=== PATIENT | male | born 1955 | race Caucasian/White ===

== ENCOUNTER 2019-08-18 19:51 | Inpatient (IN) ==
[2019-08-18 20:23] LABS: Basophils % 0.4 %; Eosinophils # 0.2 K/mcL (0.0-0.6); Eosinophils % 2.2 %; Hematocrit 42.2 % (37.5-50.1); Hemoglobin 14.7 g/dL (12.9-16.9); Immature Granulocytes % 0.3 % (0-4); Immature Platelets 4.4 % (1.1-6.1); Lymphocytes # 2.7 K/mcL (0.6-4.6); Lymphocytes % 29.5 %; Mean Corpuscular HGB Conc 34.8 g/dL (31.6-35.5); Mean Corpuscular Hemoglobin 30.7 pg (28.0-33.3); Mean Corpuscular Volume 88.1 fL (83.0-100.0); Mean Platelet Volume 9.8 fL (9.4-12.4); Monocytes # 0.7 K/mcL (0.0-1.3); Monocytes % 7.9 %; Neutrophils # 5.5 K/mcL (1.6-8.9); Platelet Count 251 K/mcL (140-400); Red Blood Count 4.79 M/mcL (4.19-5.50); Red Cell Distribution Width 12.9 % (11.5-14.5); Segmented Neutrophils % 59.7 %; White Blood Count 9.3 K/mcL (4.3-11.1)
[2019-08-18 20:57] LABS: INR 0.9; Prothrombin Time 10.5 Seconds (9.4-12.1)
[2019-08-18 20:59] LABS: Activated Partial Thrombo Time 30.5 Seconds (26.0-36.0)
[2019-08-18 21:09] LABS: BUN/Creatinine Ratio 20 (6-26); Blood Urea Nitrogen 19 mg/dL (8-23); Calcium 9.5 mg/dL (8.6-10.3); Carbon Dioxide 23 mEq/L (23-29); Chloride 102 mEq/L (98-107); Glucose 139 mg/dL (70-105); Osmolality,Calculated 285 (280-300); Potassium 4.2 mEq/L (3.5-5.1); Sodium 135 mEq/L (136-145); Troponin I < 0.03 ng/mL (< 0.04); eGFR For African Americans > 60 (> 60); eGFR For Non-African Americans > 60 (> 60)
[2019-08-18 21:20] LABS: Thyroid Stimulating Hormone 2.041 mcIU/mL (0.340-5.600)
[2019-08-18] MEDS ORDERED: Naloxone 0.4 MG/ML INJ IVP PRN (21:56)
[2019-08-18] MEDS ORDERED: Morphine Sulfate 2 MG/ML SYRINGE IVP PRN (21:56)
[2019-08-18] MEDS ORDERED: Ondansetron 4 MG/2 ML VIAL IVP PRN (21:56)
[2019-08-18 22:49] LABS: Amphetamine Screen,Urine Negative ng/mL (Cutoff=1000); Barbiturate Screen,Urine Negative ng/mL (Cutoff=200); Benzodiazepines Screen,Urine Negative ng/mL (Cutoff=200); Cannabinoid Screen,Urine Negative ng/mL (Cutoff = 50); Cocaine Screen,Urine Negative ng/mL (Cutoff= 300); Opiate Screen,Urine Negative ng/mL (Cutoff=300); Phencyclidine Screen,Urine Negative ng/mL (Cutoff=25)
[2019-08-19] MEDS: *HR* Heparin 5,000 UNIT/ML VIAL SQ SCH ×2 (00:22→06:07)
[2019-08-19 02:39] LABS: Basophils % 0.3 %; Eosinophils # 0.2 K/mcL (0.0-0.6); Eosinophils % 2.5 %; Hematocrit 42.2 % (37.5-50.1); Hemoglobin 14.2 g/dL (12.9-16.9); Immature Granulocytes % 0.3 % (0-4); Lymphocytes # 2.9 K/mcL (0.6-4.6); Lymphocytes % 32.5 %; Mean Corpuscular HGB Conc 33.6 g/dL (31.6-35.5); Mean Corpuscular Hemoglobin 30.3 pg (28.0-33.3); Mean Corpuscular Volume 90.2 fL (83.0-100.0); Mean Platelet Volume 10.3 fL (9.4-12.4); Monocytes # 0.7 K/mcL (0.0-1.3); Monocytes % 7.4 %; Platelet Count 271 K/mcL (140-400); Red Blood Count 4.68 M/mcL (4.19-5.50); White Blood Count 8.8 K/mcL (4.3-11.1)
[2019-08-19 02:46] LABS: Prothrombin Time 11.2 Seconds (9.4-12.1)
[2019-08-19 03:01] LABS: % Iron Saturation 12 % (20-55); Alanine Aminotransferase 24 Units/L (7-52); Albumin 3.9 g/dL (3.5-5.7); Albumin/Globulin Ratio 1.3 (1.1-2.2); Alkaline Phosphatase 116 Units/L (34-104); Aspartate Amino Transferase 15 Units/L (13-39); BUN/Creatinine Ratio 20 (6-26); Bilirubin,Total 0.3 mg/dL (0.3-1.0); Blood Urea Nitrogen 18 mg/dL (8-23); Calcium 9.4 mg/dL (8.6-10.3); Carbon Dioxide 26 mEq/L (23-29); Chloride 102 mEq/L (98-107); Chol/HDL Ratio 3.9 (0-4.9); Cholesterol 174 mg/dL (< 200); Glucose 135 mg/dL (70-105); HDL Cholesterol 45 mg/dL (40-59); Iron 43 mcg/dL (65-175); LDL Cholesterol,Calculated 99 mg/dL (0-99); Magnesium 1.8 mg/dL (1.6-2.6); Osmolality,Calculated 288 (280-300); Phosphorous 3.5 mg/dL (2.7-4.5); Sodium 137 mEq/L (136-145); Total Protein 6.9 g/dL (6.4-8.9); Transferrin 260 mg/dL (203-362); Triglycerides 149 mg/dL (< 150); Troponin I < 0.03 ng/mL (< 0.04); eGFR For African Americans > 60 (> 60); eGFR For Non-African Americans > 60 (> 60)
[2019-08-19 03:15] LABS: Ferritin 249 ng/mL (20-250)
[2019-08-19] MEDS: amLODIPine 5 MG TABLET PO SCH (08:10)
[2019-08-19] MEDS: Aspirin Enteric Coated 81 MG Tablet PO SCH (08:10)
[2019-08-19] MEDS: Lisinopril 20 MG TABLET PO SCH (08:10)
[2019-08-19] MEDS: *HR* Enoxaparin 120 MG/0.8 ML SYRINGE SQ SCH ×2 (11:18→22:45)
[2019-08-19] MEDS ORDERED: Acetaminophen 325 MG TABLET PO PRN (11:24)
[2019-08-19 13:13] LABS: Estimated Average Glucose 154 mg/dl
[2019-08-19] MEDS ORDERED: Melatonin 3 MG TABLET PO ONE (20:55)
[2019-08-20 02:11] LABS: Basophils % 0.4 %; Eosinophils # 0.3 K/mcL (0.0-0.6); Eosinophils % 3.6 %; Hematocrit 43.3 % (37.5-50.1); Hemoglobin 14.5 g/dL (12.9-16.9); Immature Granulocytes % 0.1 % (0-4); Lymphocytes # 2.9 K/mcL (0.6-4.6); Lymphocytes % 37.5 %; Mean Corpuscular HGB Conc 33.5 g/dL (31.6-35.5); Mean Corpuscular Hemoglobin 30.4 pg (28.0-33.3); Mean Corpuscular Volume 90.8 fL (83.0-100.0); Mean Platelet Volume 9.8 fL (9.4-12.4); Monocytes # 0.7 K/mcL (0.0-1.3); Neutrophils # 3.9 K/mcL (1.6-8.9); Platelet Count 266 K/mcL (140-400); Red Blood Count 4.77 M/mcL (4.19-5.50); Segmented Neutrophils % 49.4 %; White Blood Count 7.8 K/mcL (4.3-11.1)
[2019-08-20 02:27] LABS: BUN/Creatinine Ratio 15 (6-26); Blood Urea Nitrogen 15 mg/dL (8-23); Calcium 9.6 mg/dL (8.6-10.3); Carbon Dioxide 27 mEq/L (23-29); Chloride 102 mEq/L (98-107); Glucose 128 mg/dL (70-105); Magnesium 1.9 mg/dL (1.6-2.6); Osmolality,Calculated 284 (280-300); Phosphorous 4.5 mg/dL (2.7-4.5); Potassium 4.3 mEq/L (3.5-5.1); Sodium 136 mEq/L (136-145); eGFR For African Americans > 60 (> 60); eGFR For Non-African Americans > 60 (> 60)
[2019-08-20] MEDS: *HR* HYDROcodone/Acet 5/325 mg TABLET PO PRN ×2 (02:43→16:08)
[2019-08-20] MEDS: amLODIPine 5 MG TABLET PO SCH (09:21)
[2019-08-20] MEDS: Lisinopril 20 MG TABLET PO SCH (09:21)
[2019-08-20] MEDS: *HR* Enoxaparin 120 MG/0.8 ML SYRINGE SQ SCH (09:22)
[2019-08-20] MEDS: Aspirin Enteric Coated 81 MG Tablet PO SCH (09:22)
[2019-08-20] MEDS ORDERED: Dextrose Gel 15 GM/37.5 ML TUBE PO PRN ×2 (12:12)
[2019-08-20] MEDS ORDERED: *HR* Dextrose 50 % in Water (Syg) 50 ML SYRINGE IVP PRN (12:12)
[2019-08-20] MEDS ORDERED: D5% in Water 1,000 ML IVC PRN (12:12)
[2019-08-20] MEDS: Insulin LISPRO 300 UNITS/3 ML VIAL SQ SCH (16:30)
[2019-08-20] MEDS ORDERED: SUMAtriptan succinate 25 MG TABLET PO ONE (20:30)
[2019-08-20] MEDS ORDERED: Acetaminophen 325 MG TABLET PO ONE (20:31)
[2019-08-20] MEDS: Apixaban 5 MG TABLET PO SCH (21:01)
[2019-08-20] MEDS: Insulin DETEMIR 100 UNIT/ML X5UNITS SQ SCH (21:03)
[2019-08-21] MEDS: Insulin LISPRO 300 UNITS/3 ML VIAL SQ SCH ×3 (07:42→16:17)
[2019-08-21] MEDS: Apixaban 5 MG TABLET PO SCH ×2 (07:51→21:07)
[2019-08-21] MEDS: Lisinopril 20 MG TABLET PO SCH (07:51)
[2019-08-21] MEDS: amLODIPine 5 MG TABLET PO SCH (07:51)
[2019-08-21] MEDS ORDERED: NON-FORMULARY MEDICATION 1 EACH EACH (Omega-3/Dha/Epa/Fish Oil [Fish Oil 1,000 Mg Softgel] PO SCH (09:00)
[2019-08-21] MEDS ORDERED: *HR* FentaNYL (PF) 100 MCG/2 ML VIAL IVP PRN (13:24)
[2019-08-21] MEDS ORDERED: Lidocaine Viscous Oral Soln 15 ML SOLUTION MM PRN (13:24)
[2019-08-21] MEDS ORDERED: 0.9 % Sodium Chloride 500 ML IVC ONE (13:26)
[2019-08-21] MEDS ORDERED: *HR* Midazolam HCl 5 MG/5 ML VIAL IVP PRN (13:26)
[2019-08-21] MEDS: *HR* HYDROcodone/Acet 5/325 mg TABLET PO PRN (15:32)
[2019-08-21] MEDS: Insulin DETEMIR 100 UNIT/ML X5UNITS SQ SCH (21:08)
[2019-08-21] MEDS ORDERED: Acetaminophen 325 MG TABLET PO ONE (23:56)
[2019-08-22] MEDS: *HR* HYDROcodone/Acet 5/325 mg TABLET PO PRN (02:23)
[2019-08-22 03:00] LABS: Basophils % 0.4 %; Eosinophils # 0.2 K/mcL (0.0-0.6); Eosinophils % 2.6 %; Hematocrit 44.9 % (37.5-50.1); Hemoglobin 15.4 g/dL (12.9-16.9); Immature Granulocytes % 0.2 % (0-4); Lymphocytes # 2.7 K/mcL (0.6-4.6); Mean Corpuscular HGB Conc 34.3 g/dL (31.6-35.5); Mean Corpuscular Hemoglobin 30.7 pg (28.0-33.3); Mean Corpuscular Volume 89.6 fL (83.0-100.0); Mean Platelet Volume 9.6 fL (9.4-12.4); Monocytes # 0.7 K/mcL (0.0-1.3); Monocytes % 8.7 %; Neutrophils # 4.8 K/mcL (1.6-8.9); Platelet Count 282 K/mcL (140-400); Red Blood Count 5.01 M/mcL (4.19-5.50); Segmented Neutrophils % 56.1 %; White Blood Count 8.6 K/mcL (4.3-11.1)
[2019-08-22 03:19] LABS: BUN/Creatinine Ratio 20 (6-26); Blood Urea Nitrogen 25 mg/dL (8-23); Calcium 9.8 mg/dL (8.6-10.3); Carbon Dioxide 25 mEq/L (23-29); Chloride 100 mEq/L (98-107); Glucose 90 mg/dL (70-105); Magnesium 1.7 mg/dL (1.6-2.6); Osmolality,Calculated 284 (280-300); Phosphorous 4.6 mg/dL (2.7-4.5); Potassium 4.2 mEq/L (3.5-5.1); Sodium 135 mEq/L (136-145); eGFR For African Americans > 60 (> 60); eGFR For Non-African Americans 59 (> 60)
[2019-08-22] MEDS: Insulin LISPRO 300 UNITS/3 ML VIAL SQ SCH ×2 (08:59→12:12)
[2019-08-22] MEDS: amLODIPine 5 MG TABLET PO SCH (09:02)
[2019-08-22] MEDS: Apixaban 5 MG TABLET PO SCH (09:02)
[2019-08-22] MEDS: Lisinopril 20 MG TABLET PO SCH (09:02)
[2019-08-22] MEDS ORDERED: Lidocaine Viscous Oral Soln 15 ML SOLUTION MM PRN (09:29)
[2019-08-22] MEDS ORDERED: 0.9 % Sodium Chloride 500 ML IVC ONE (09:30)
[2019-08-22 10:05] VITALS: BP 111/81
[2019-08-22] MEDS: *HR* Midazolam HCl 5 MG/5 ML VIAL IVP PRN ×4 (10:30→10:50)
[2019-08-22] MEDS: *HR* FentaNYL (PF) 100 MCG/2 ML VIAL IVP PRN ×3 (10:30→10:45)
== END 2019-08-22 13:28 | disposition home or self-care (01) | DRG 309 ==
LOC: 2NENU 19:51 → EMEROOARM 19:51 → SUATTDRO 21:29 → 2NENU 23:00 → SUATTDRO 08-21 17:47
PROVIDERS: ADMIT Internal Medicine; ATTEND Family Medicine

== ENCOUNTER 2020-09-12 15:31 | Observation (INO) ==
[2020-09-12 15:55] LABS: Basophils % 0.2 %; Eosinophils # 0.1 K/mcL (0.0-0.6); Eosinophils % 0.3 %; Hematocrit 48.9 % (37.5-50.1); Hemoglobin 15.8 g/dL (12.9-16.9); Immature Granulocytes % 0.2 % (0-4); Lymphocytes # 3.3 K/mcL (0.6-4.6); Lymphocytes % 21.6 %; Mean Corpuscular HGB Conc 32.3 g/dL (31.6-35.5); Mean Corpuscular Hemoglobin 29.1 pg (28.0-33.3); Mean Corpuscular Volume 90.1 fL (83.0-100.0); Mean Platelet Volume 9.5 fL (9.4-12.4); Monocytes # 1.1 K/mcL (0.0-1.3); Monocytes % 7.5 %; Neutrophils # 10.6 K/mcL (1.6-8.9); Platelet Count 357 K/mcL (140-400); Red Blood Count 5.43 M/mcL (4.19-5.50); Red Cell Distribution Width 12.8 % (11.5-14.5); Segmented Neutrophils % 70.2 %; White Blood Count 15.1 K/mcL (4.3-11.1)
[2020-09-12 16:00] LABS: INR 1.2; Prothrombin Time 14.3 Seconds (9.4-12.1)
[2020-09-12 16:03] LABS: Activated Partial Thrombo Time 31.5 Seconds (26.0-36.0)
[2020-09-12 16:16] LABS: BUN/Creatinine Ratio 25 (6-26); Blood Urea Nitrogen 25 mg/dL (8-23); Calcium 10.2 mg/dL (8.6-10.3); Carbon Dioxide 24 mEq/L (23-29); Chloride 99 mEq/L (98-107); Glucose 158 mg/dL (70-105); Osmolality,Calculated 284 (280-300); Potassium 4.5 mEq/L (3.5-5.1); Sodium 133 mEq/L (136-145); eGFR For African Americans > 60 (> 60); eGFR For Non-African Americans > 60 (> 60)
[2020-09-12 16:17] LABS: Troponin I < 0.03 ng/mL (< 0.04)
[2020-09-12] MEDS: DilTIAZem 50 MG/50 ML IV.SOLN IVC SCH (16:24)
[2020-09-12] MEDS ORDERED: DilTIAZem 50 MG/50 ML IV.SOLN IVC SCH (16:28)
[2020-09-12] MEDS ORDERED: *HR* HYDROcodone/Acet 5/325 mg TABLET PO PRN (17:52)
[2020-09-12] MEDS ORDERED: Naloxone 0.4 MG/ML INJ IVP PRN (17:52)
[2020-09-12] MEDS ORDERED: MOM Conc 10 ML UD.LIQ PO PRN (17:52)
[2020-09-12] MEDS ORDERED: Acetaminophen 325 MG TABLET PO PRN (17:52)
[2020-09-12] MEDS ORDERED: Ondansetron 4 MG/2 ML VIAL IVP PRN (17:52)
[2020-09-12] MEDS ORDERED: Mag Hydrox/Al Hydrox/Simeth 30 ML UDC PO PRN (17:52)
[2020-09-12] MEDS ORDERED: D5% in Water 1,000 ML IVC PRN (17:54)
[2020-09-12] MEDS ORDERED: *HR* Dextrose 50 % in Water (Vial) 50 ML VIAL IVP PRN (17:54)
[2020-09-12] MEDS ORDERED: Dextrose Gel 15 GM/37.5 ML TUBE PO PRN ×2 (17:54)
[2020-09-12] MEDS: Magnesium Oxide 400 MG TABLET PO SCH (18:51)
[2020-09-12] MEDS: Insulin LISPRO 300 UNITS/3 ML VIAL SUBQ SCH (21:00)
[2020-09-12] MEDS: Apixaban 5 MG TABLET PO SCH (21:18)
[2020-09-12] MEDS: Melatonin 3 MG TABLET PO PRN (21:18)
[2020-09-12] MEDS: Sennosides/Docusate Sodium TABLET PO SCH (21:18)
[2020-09-13] MEDS: DilTIAZem 50 MG/50 ML IV.SOLN IVC SCH ×2 (01:23→19:52)
[2020-09-13 06:45] LABS: Basophils % 0.3 %; Eosinophils # 0.1 K/mcL (0.0-0.6); Eosinophils % 1.1 %; Hematocrit 46.9 % (37.5-50.1); Hemoglobin 15.2 g/dL (12.9-16.9); Immature Granulocytes % 0.3 % (0-4); Lymphocytes # 3.5 K/mcL (0.6-4.6); Lymphocytes % 29.6 %; Mean Corpuscular HGB Conc 32.4 g/dL (31.6-35.5); Mean Corpuscular Hemoglobin 29.5 pg (28.0-33.3); Mean Corpuscular Volume 90.9 fL (83.0-100.0); Mean Platelet Volume 9.5 fL (9.4-12.4); Monocytes % 8.6 %; Neutrophils # 7.1 K/mcL (1.6-8.9); Platelet Count 281 K/mcL (140-400); Red Blood Count 5.16 M/mcL (4.19-5.50); Red Cell Distribution Width 12.9 % (11.5-14.5); Segmented Neutrophils % 60.1 %; White Blood Count 11.8 K/mcL (4.3-11.1)
[2020-09-13 07:09] LABS: Alanine Aminotransferase 18 Units/L (7-52); Albumin 3.8 g/dL (3.5-5.7); Albumin/Globulin Ratio 1.3 (1.1-2.2); Alkaline Phosphatase 88 Units/L (34-104); Aspartate Amino Transferase 12 Units/L (13-39); BUN/Creatinine Ratio 26 (6-26); Bilirubin,Total 0.5 mg/dL (0.3-1.0); Blood Urea Nitrogen 22 mg/dL (8-23); Calcium 9.8 mg/dL (8.6-10.3); Carbon Dioxide 24 mEq/L (23-29); Chloride 100 mEq/L (98-107); Glucose 129 mg/dL (70-105); Osmolality,Calculated 281 (280-300); Phosphorous 4.1 mg/dL (2.7-4.5); Potassium 4.2 mEq/L (3.5-5.1); Sodium 133 mEq/L (136-145); Total Protein 6.8 g/dL (6.4-8.9); eGFR For African Americans > 60 (> 60); eGFR For Non-African Americans > 60 (> 60)
[2020-09-13 07:19] LABS: Thyroid Stimulating Hormone 2.206 mcIU/mL (0.340-5.600)
[2020-09-13] MEDS: Insulin LISPRO 300 UNITS/3 ML VIAL SUBQ SCH ×4 (08:06→20:49)
[2020-09-13] MEDS: Apixaban 5 MG TABLET PO SCH ×2 (09:03→19:51)
[2020-09-13] MEDS: lisinopriL 20 MG TABLET PO SCH (09:03)
[2020-09-13] MEDS: Sennosides/Docusate Sodium TABLET PO SCH ×2 (09:03→19:52)
[2020-09-13] MEDS ORDERED: Perflutren Lipid Microsphere 1.3 ML in 0.9 % Sodium Chloride 8.7 ML IVP PRN (11:38)
[2020-09-13] MEDS: Insulin DETEMIR 100 UNIT/ML X5UNITS SUBQ SCH (21:33)
[2020-09-14] MEDS: Insulin LISPRO 300 UNITS/3 ML VIAL SUBQ SCH ×4 (07:29→20:25)
[2020-09-14] MEDS: Apixaban 5 MG TABLET PO SCH ×2 (07:43→20:27)
[2020-09-14] MEDS: lisinopriL 20 MG TABLET PO SCH (07:43)
[2020-09-14] MEDS: Finasteride 5 MG TABLET PO SCH (07:43)
[2020-09-14] MEDS: Sennosides/Docusate Sodium TABLET PO SCH ×2 (07:43→20:27)
[2020-09-14 08:06] LABS: BUN/Creatinine Ratio 25 (6-26); Blood Urea Nitrogen 28 mg/dL (8-23); Calcium 9.7 mg/dL (8.6-10.3); Carbon Dioxide 24 mEq/L (23-29); Chloride 100 mEq/L (98-107); Glucose 118 mg/dL (70-105); Osmolality,Calculated 283 (280-300); Phosphorous 3.9 mg/dL (2.7-4.5); Potassium 4.6 mEq/L (3.5-5.1); Sodium 133 mEq/L (136-145); eGFR For African Americans > 60 (> 60); eGFR For Non-African Americans > 60 (> 60)
[2020-09-14] MEDS: Cholecalciferol (D-3) 1,000 UNIT (25MCG) TABLET PO SCH (11:07)
[2020-09-14] MEDS ORDERED: *HR* LORazepam 2 MG/ML VIAL IVP PRN (13:39)
[2020-09-14] MEDS: Magnesium Oxide 400 MG TABLET PO SCH (17:02)
[2020-09-14] MEDS: Insulin DETEMIR 100 UNIT/ML X5UNITS SUBQ SCH (20:25)
[2020-09-14] MEDS: Melatonin 3 MG TABLET PO PRN (22:31)
[2020-09-15 05:44] LABS: Basophils % 0.4 %; Eosinophils # 0.2 K/mcL (0.0-0.6); Eosinophils % 2.1 %; Hematocrit 50.4 % (37.5-50.1); Hemoglobin 16.4 g/dL (12.9-16.9); Immature Granulocytes % 0.4 % (0-4); Lymphocytes # 3.5 K/mcL (0.6-4.6); Lymphocytes % 31.8 %; Mean Corpuscular HGB Conc 32.5 g/dL (31.6-35.5); Mean Corpuscular Hemoglobin 30.3 pg (28.0-33.3); Mean Platelet Volume 9.6 fL (9.4-12.4); Monocytes # 0.9 K/mcL (0.0-1.3); Monocytes % 7.8 %; Neutrophils # 6.4 K/mcL (1.6-8.9); Platelet Count 306 K/mcL (140-400); Red Blood Count 5.42 M/mcL (4.19-5.50); Red Cell Distribution Width 13.1 % (11.5-14.5); Segmented Neutrophils % 57.5 %; White Blood Count 11.1 K/mcL (4.3-11.1)
[2020-09-15 06:21] LABS: BUN/Creatinine Ratio 25 (6-26); Blood Urea Nitrogen 33 mg/dL (8-23); Calcium 9.7 mg/dL (8.6-10.3); Carbon Dioxide 26 mEq/L (23-29); Chloride 98 mEq/L (98-107); Glucose 119 mg/dL (70-105); Osmolality,Calculated 282 (280-300); Phosphorous 3.9 mg/dL (2.7-4.5); Potassium 4.7 mEq/L (3.5-5.1); Sodium 132 mEq/L (136-145); eGFR For African Americans > 60 (> 60); eGFR For Non-African Americans 54 (> 60)
[2020-09-15] MEDS: Insulin LISPRO 300 UNITS/3 ML VIAL SUBQ SCH ×2 (08:04→10:25)
[2020-09-15] MEDS: Finasteride 5 MG TABLET PO SCH (08:07)
[2020-09-15] MEDS: lisinopriL 20 MG TABLET PO SCH (08:07)
[2020-09-15] MEDS: Cholecalciferol (D-3) 1,000 UNIT (25MCG) TABLET PO SCH (08:09)
[2020-09-15] MEDS: Apixaban 5 MG TABLET PO SCH (08:09)
[2020-09-15] MEDS: Sennosides/Docusate Sodium TABLET PO SCH (08:10)
[2020-09-15] MEDS ORDERED: 0.9 % Sodium Chloride 500 ML IVC ONE (10:52)
[2020-09-15] MEDS: *HR* Midazolam HCl 5 MG/5 ML VIAL IVP PRN ×3 (11:13→11:22)
[2020-09-15] MEDS: *HR* FentaNYL (PF) 100 MCG/2 ML VIAL IVP PRN ×2 (11:13→11:17)
[2020-09-15 12:59] VITALS: BP 91/57
== END 2020-09-15 14:19 | disposition home or self-care (01) ==
LOC: 2ANU 15:31 → EMEROOARM 15:31 → SUATTDRO 17:17 → 2ANU 18:12
PROVIDERS: ADMIT General Practice; ATTEND Internal Medicine